=== PATIENT | female | born 1945 | race Caucasian/White ===

== ENCOUNTER 2022-11-25 14:20 | Outpatient (CLI) | payer MEDICARE | END 2022-11-25 14:21 | disposition home or self-care (01) | LOC: CSHMAMMO 14:20 | PROVIDERS: ATTEND Obstetrics & Gynecology | DX: M85.89 Other specified disorders of bone density and structure, multiple sites (principal); M85.852 Other specified disorders of bone density and structure, left thigh; M85.851 Other specified disorders of bone density and structure, right thigh | CPT/HCPCS: 77080 ==

== ENCOUNTER 2022-12-06 13:56 | Outpatient (CLI) | payer MEDICARE | END 2022-12-06 13:57 | disposition home or self-care (01) | LOC: CSHMAMMO 13:56 | PROVIDERS: ATTEND Obstetrics & Gynecology | DX: N64.4 Mastodynia (principal); R92.8 Other abnormal and inconclusive findings on diagnostic imaging of breast; R92.1 Mammographic calcification found on diagnostic imaging of breast | CPT/HCPCS: 77066; G0279 ==

== ENCOUNTER 2023-05-31 09:11 | Outpatient (CLI) | payer MEDICARE | END 2023-05-31 09:12 | disposition home or self-care (01) | LOC: CSHULT 09:11 | PROVIDERS: ATTEND Internal Medicine | DX: E03.9 Hypothyroidism, unspecified (principal) | CPT/HCPCS: 76536 ==